=== PATIENT | male | born 1985 | race Caucasian/White ===

== ENCOUNTER 2018-11-28 09:18 | Inpatient (IN) | payer BC, SELFPAY ==
--- NOTE | 2018-11-28 09:55 | RAD ---
XR Chest Pa Lat STANDARD HISTORY: Chest pain COMPARISON: None. FINDINGS: Heart size and mediastinum are within normal limits. The lungs are clear of infiltrates. No significant bony findings. IMPRESSION: No active intrathoracic disease.
[2018-11-28 10:05] LABS: #Basophils 0.2 thou/uL (0.0-0.2); #Eosinphils 0.3 thou/uL (0.0-0.7); #Lymphocytes 2.9 thou/uL (1.20-3.40); #Monocytes 0.6 thou/uL (0.11-0.59); #Neutrophils 5.6 thou/uL (1.40-6.50); %Basophils 1.6 % (0.0-1.0); %Eosinophils 3.5 % (0.0-10.0); %Lymphocytes 30.1 % (21.0-51.0); %Monocytes 6.6 % (0.0-10.0); %Neutrophils 58.1 % (42.0-75.0); Hemoglobin 15.2 g/dL (14.0-18.0); Mean Corpuscular HGB CONC 35.8 g/dL (32.0-36.0); Mean Corpuscular Hemoglobin 31.6 pg (27.0-31.0); Mean Corpuscular Volume 88.3 fL (78.0-98.0); Mean Platelet Volume 7.5 fL (7.4-10.4); Platelet Count 238 thou/uL (130-400); RBC Distribution Width 10.7 % (11.5-14.5); White Blood Cell (WBC) Count 9.6 thou/uL (4.8-10.8)
[2018-11-28] MEDS ORDERED: Lidocaine Viscous Sol 2% 15 ml UD Cup ONE (10:15)
[2018-11-28] MEDS ORDERED: Mag-Al Plus 1200 MG/1200 MG/120 MG/30 ML UDCUP ONE (10:15)
[2018-11-28 10:18] LABS: ALT (SGPT) 33 U/L (8-55); AST (SGOT) 24 U/L (5-34); Albumin 4.4 g/dL (3.5-5.0); Alkaline Phosphatase 85 U/L (40-150); Anion Gap 14 mmol/L (10-20); BUN (Urea Nitrogen) 11 mg/dL (8.9-20.6); Bilirubin, Total 0.4 mg/dL (0.2-1.2); Calc. Creatinine Clearance 0 mL/min (70-130); Calcium 9.5 mg/dL (7.8-10.44); Carbon Dioxide 24 mmol/L (22-29); Chloride 107 mmol/L (98-107); Estimated GFR-MDRD 86; Globulin 2.8 g/dL (2.4-3.5); Glucose 95 mg/dL (70-105); Lipase 286 U/L (8-78); Potassium 3.9 mmol/L (3.5-5.1); Protein, Total 7.2 g/dL (6.0-8.3); Sodium 141 mmol/L (136-145)
[2018-11-28] MEDS ORDERED: Pantoprazole 40 MG VIAL ONE (10:28)
[2018-11-28 10:53] LABS: Bilirubin Negative (Negative); Blood, Urine Negative (Negative); Clarity Clear (Clear); Glucose, Urine (Dipstick) Negative (Negative); Leukocyte Negative (Negative); Nitrite Negative (Negative); Protein, Urine (Dipstick) Negative (Neg-Trace); Urobilinogen 0.2 mg/dL (Less than 2)
[2018-11-28] MEDS ORDERED: Lorazepam 2 MG/ML VIAL ONE (11:03)
[2018-11-28] MEDS ORDERED: Morphine 4 MG/ML VIAL ONE (11:04)
[2018-11-28] MEDS ORDERED: Thiamine HCl 200 MG/2 ML VIAL ONE (11:04)
[2018-11-28] MEDS ORDERED: Dextrose 5 %-0.45 % NaCl 1,000 ML ONE (11:04)
[2018-11-28] MEDS ORDERED: Multivit, Adult Inj 10 ML VIAL ONE (11:04)
[2018-11-28] MEDS ORDERED: diphenhydrAMINE 50 MG/ML VIAL ONE (11:04)
[2018-11-28] MEDS ORDERED: Morphine 2 MG/ML SYRINGE SLOW IVP PRN ×2 (12:59→18:41)
[2018-11-28] MEDS: Ondansetron PF 4 MG/2 ML Vial SLOW IVP PRN (14:52)
[2018-11-28] MEDS ORDERED: HYDROcodone/Acetaminophen 5/325 mg Tablet PO PRN ×3 (15:05→18:49)
[2018-11-28 18:32] VITALS: BMI 24.1
[2018-11-28] MEDS ORDERED: Dextrose 50% Abboject 50 ML SYRINGE SLOW IVP PRN (18:34)
[2018-11-28] MEDS ORDERED: Dextrose 5% in Water 1,000 ML IV PRN (18:34)
[2018-11-28] MEDS ORDERED: Diazepam 5 MG TAB PO PRN (18:38)
[2018-11-28] MEDS ORDERED: Thiamine HCl 200 MG/2 ML VIAL IM SCH (18:45)
[2018-11-28] MEDS: Morphine 2 MG/ML SYRINGE SLOW IVP PRN ×2 (19:28→22:02)
[2018-11-28] MEDS ORDERED: Sodium Chloride 0.9% 100 ML ONE (19:54)
[2018-11-28] MEDS ORDERED: Lactated Ringer's 1,000 ML IV SCH (20:00)
[2018-11-28] MEDS ORDERED: Lorazepam 2 MG/ML VIAL SLOW IVP SCH (20:00)
[2018-11-28] MEDS: Sodium Chloride 0.9% 1,000 ML IV SCH (20:12)
[2018-11-28] MEDS: Pantoprazole 40 MG VIAL IVP SCH (22:48)
[2018-11-28] MEDS: HYDROcodone/Acetaminophen 5/325 mg Tablet PO PRN (22:55)
--- NOTE | 2018-11-29 02:25 | HP ---
PRIMARY CARE PHYSICIAN: None. REASON FOR ADMISSION: Abdominal pain/acute pancreatitis. HISTORY OF PRESENT ILLNESS AND HOSPITAL COURSE: Mr. Kothari is a 33-year-old male with reported history of alcohol use over the past 20 years. He presented to the ER today for evaluation of abdominal pain. The patient reports that he has been having abdominal pain that comes intermittently over the past week. The patient admits that he has been drinking at least 6 to 12 packs a day of beers for the last 20 years. Since November 20 celebration, a week ago, he has been drinking more. States he consumed almost double of what he used to drink. He has been having intermittent epigastric pain and left upper quadrant pain over the past week. The pain radiates to the back on the left side. Pain comes and goes away with unknown triggers. Nothing helps the pain. Food sometimes makes it worse than helps. States that he has not had been eating much for the last few days. Symptoms have been gradual on onset, but progressively worsened over the past few days, so the patient went to the ER at this time with current severity of pain rated as 8/10 upon presentation. The patient reports some nausea but otherwise he denies fever, nausea, diarrhea, rectal bleeding. He has been voiding freely and stooling fine with soft stools. Last BM was noted yesterday. Denies associated trauma. No associated recent travel. No associated urinary tract infection signs or symptoms. On further examination at the ER, his initial vital signs were reported with a BP of 150/91, pulse 98, respirations 20, temperature 97, and O2 sats 95% room air. Initial labs revealed lipase of 286. Troponin less than 0.010. The other liver function tests within normal limits. Calcium 9.5, BUN 11, creatinine 1. Hemoglobin 15.2, hematocrit 42.4, WBC 9.6, platelets 238. Urine is negative. After receiving medications from the ER that includes Ativan intravenous, morphine intravenous 3 mg, Benadryl 12.5 mg, Protonix IV 40 mg, banana bag 1L IV fluid infusion, and GI cocktail 40 mL oral, patient's pain has improved.The ER physician is supposed to send patient home, however The patient admits history of "shaking" every time he stops drinking at home. Given the possibility of alcohol withdrawal, the patient was admitted to [facility] for further monitoring and observation. On the floor, staff reports that the patient started complaining of severe pain , not responding to morphine IV, thus he was also started on [place] p.o. When patient was evaluated , the patient reports that he got some relief after receiving the [place]. However, pain is now starting again, asking for medication. PAST MEDICAL HISTORY: Unremarkable. PAST SURGERY HISTORY: None. MEDICATIONS: None. ALLERGIES: NKDA. SOCIAL HISTORY: The patient smokes a pack a day since 15 years of age. He drinks 6 to 12 packs of beers per day over the last 20 years. 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 The patient had been free of illicit drug use for the last 3 years. The patient is with 2 kids. He works in the [employer] field. FAMILY HISTORY: Father at 54 years of age secondary to lung cancer, unspecified. Mother is alive at 53 years of age, has a history of meth abuse. Two half brothers, that the patient grew up with, was reported to have issues with meth abuse and killed themselves. REVIEW OF SYSTEMS: GENERAL: The patient denies fever or chills. Reports fatigue, general weakness, loss of appetite with weight loss of approximately 4 weeks over the last month. HEENT: No acute visual changes, hearing changes, cold symptoms, but swallowing issues. CARDIO: Denies chest pain, dyspnea on exertion, cyanosis, leg swelling. RESPIRATORY: No shortness of breath, cough, sputum production, pain with breathing, wheezing. History of asthma. GI: Reports some nausea without vomiting since he got admitted. No diarrhea. No constipation. No rectal bleeding. No hematemesis. No acute bowel habit changes. MUSCULOSKELETAL: Reports occasional joint pains. Otherwise, denies joint swelling/effusion, stiffness, or myalgias. NEURO: Denies seizure activities or tics, headaches, loss of consciousness. No motor or sensory losses or loss of coordination. PSYCH: Denies depressive symptoms, anxiety, insomnia, suicidal thoughts, ideations, or plans. PHYSICAL EXAMINATION: VITAL SIGNS: Blood pressure 135/85, temperature 98.2, pulse 71, respiration 18 , O2 saturation 99% room air, weight 145 pounds. GENERAL: The patient is awake, alert, in mild discomfort secondary to reported pain, not in acute distress. HEENT: Normocephalic, atraumatic. PERRL. Intact EOM. Anicteric sclerae. Oral mucosa is moist. NECK: Supple. No LAD. No JVD. No bruit. CHEST: Normal excursion. Nonlabored breathing. Clear to auscultation bilaterally. No wheezing. No crackles. No rhonchi. No rales. ABDOMEN: Flat and soft. Normoactive bowel sounds in 4 quadrants. No tender percussion. Reports direct tenderness in the epigastrium and upper abdomen, left upper quadrant greater than the right upper quadrant. No rebound. No guarding. No signs of peritonitis. No rigidity. EXTREMITIES: No edema. No cyanosis. No clubbing. NEURO: Alert and oriented x3, nonfocal. DTRs 2+ symmetrically. PSYCH: Appears calm with appropriate demeanor and affect. SKIN: No rashes. No lesions. No jaundice. LABORATORY DATA: Other tests and labs: Chest x-ray, no active intrathoracic disease. EKG done in the ER was interpreted by emergency department physician at the time of study showed normal sinus rhythm with a rate of 78 beats per minute. No ectopics. No previous EKG for comparison. Conduction is normal, ST segments normal, P waves normal, axis normal. Clinical impression, normal EKG. ASSESSMENT: 1. Acute alcoholic pancreatitis, mild, 2. Chronic alcoholism. 3. Tobacco use. 4. History of meth abuse or use. PLAN: 1. Plan would be the patient is admitted to [facility] medical floor for inpatient management for acute pancreatitis, deemed secondary to alcohol. At this time , the patient has no evidence of organ failure. He is hemodynamically stable. Electrolytes within normal limits except for mildly elevated lipase of 286. We will continue supportive medical management. We will keep patient n.p.o. except for medication. Continue intravenous fluids. We will continue pain management with morphine IV and p.r.n. [place] for breakthrough pain. We will do serial lab monitoring. We will include lipids as well as Accu-Chek q.6 hours monitoring for hyperglycemia screening. We will continue fluid hydration with normal saline at this time. Abstinence symptoms evaluation orders were initiated. At this time, the patient scores is 3. No indication for diazepam at this point. We will start thiamine 100 mg IM, then thiamine 100 mg p.o. daily, folate 1 mg p.o. daily, multivitamins 1 mg p.o. daily, and magnesium sulfate 1 g in 100 mL NS IVPB over 2 hours, and magnesium oxide 400 mg p.o. daily. At this point, there is no indication for imaging studies, but we will highly consider CT scan of the abdomen versus ultrasound of the abdomen at any time if deemed clinically indicated. We will continue n.p.o.at least for the next 24 to 48 hours and see if we can advance diet afterwards as tolerated. GI prophylaxis with PPI and DVT prophylaxis with Lovenox. 2. Discussed above diagnosis plan of care with the patient at length during this visit. The patient was encouraged to ask questions. His questions were answered to his satisfaction. Again, the patient is currently hemodynamically stable at this point, but at any time that his pain progressed and become severe or if with any signs of peritonitis or other complications including, but not limited to, organ failures , continuous fluid loss, acute changes in his lab tests, we will highly consider transferring patient to a tertiary hospital for higher level of care. I also discussed with the patient that if he develops signs and symptoms that is indicating ICU management based on the screening criteria for this diagnosis, we will highly consider transferring patient at any time. The patient voices understanding. 3. Further recommendations depending on the hospital course. CODE STATUS: Full code. Job ID: [id number] MTDD
[2018-11-29] MEDS: Sodium Chloride 0.9% 1,000 ML IV SCH ×2 (06:25→18:02)
[2018-11-29 06:28] LABS: Cardiac Risk 4.5 (Less than 4.5)
[2018-11-29 06:30] LABS: ALT (SGPT) 24 U/L (8-55); AST (SGOT) 18 U/L (5-34); Albumin 3.6 g/dL (3.5-5.0); Alkaline Phosphatase 79 U/L (40-150); Anion Gap 12 mmol/L (10-20); BUN (Urea Nitrogen) 7 mg/dL (8.9-20.6); Bilirubin, Total 0.6 mg/dL (0.2-1.2); Calc. Creatinine Clearance 99 mL/min (70-130); Calcium 8.1 mg/dL (7.8-10.44); Carbon Dioxide 23 mmol/L (22-29); Chloride 110 mmol/L (98-107); Estimated GFR-MDRD 87; Globulin 2.3 g/dL (2.4-3.5); Glucose 100 mg/dL (70-105); Potassium 3.8 mmol/L (3.5-5.1); Protein, Total 5.9 g/dL (6.0-8.3); Sodium 141 mmol/L (136-145)
[2018-11-29 06:31] LABS: Magnesium 2.2 mg/dL (1.6-2.6)
[2018-11-29 07:15] LABS: Eosinophils 3 % (0-10); Hemoglobin 14.4 g/dL (14.0-18.0); Lymphocytes 17 % (21-51); MDiff Complete? YES; Mean Corpuscular HGB CONC 35.3 g/dL (32.0-36.0); Mean Corpuscular Hemoglobin 31.3 pg (27.0-31.0); Mean Corpuscular Volume 88.7 fL (78.0-98.0); Mean Platelet Volume 7.5 fL (7.4-10.4); Monocytes 2 % (0-10); Neutrophil 78 % (42-75); Platelet Count 202 thou/uL (130-400); Platelet Morphology Comment Appears Adequate; RBC Distribution Width 10.8 % (11.5-14.5); RBC Morphology Normal; Red Blood Cell (RBC) Count 4.58 mill/uL (4.70-6.10); White Blood Cell (WBC) Count 11.5 thou/uL (4.8-10.8)
[2018-11-29] MEDS: Morphine 2 MG/ML SYRINGE SLOW IVP PRN (07:18)
[2018-11-29] MEDS: Multivitamin W/ Minerals 1 TAB PO SCH (08:30)
[2018-11-29] MEDS: Thiamine 100 MG TAB PO SCH (08:30)
[2018-11-29] MEDS: Folic Acid 1 MG TAB PO SCH (08:30)
[2018-11-29] MEDS: Magnesium Oxide 400 MG TAB PO SCH (08:30)
[2018-11-29] MEDS: Enoxaparin Sodium 40 MG/0.4 ML SYRINGE SC SCH (08:30)
[2018-11-29] MEDS: HYDROcodone/Acetaminophen 5/325 mg Tablet PO PRN ×2 (12:50→19:37)
[2018-11-29] MEDS: Ondansetron PF 4 MG/2 ML Vial SLOW IVP PRN (12:52)
[2018-11-29] MEDS: Sodium Chloride 0.45% 1,000 ML IV SCH (17:41)
[2018-11-29] MEDS ORDERED: Diazepam 5 MG TAB PO PRN (18:39)
[2018-11-29] MEDS: Pantoprazole 40 MG VIAL IVP SCH (21:11)
[2018-11-30] MEDS: Sodium Chloride 0.45% 1,000 ML IV SCH (05:36)
[2018-11-30] MEDS: HYDROcodone/Acetaminophen 5/325 mg Tablet PO PRN (05:38)
[2018-11-30 06:25] LABS: #Basophils 0.1 thou/uL (0.0-0.2); #Eosinphils 0.3 thou/uL (0.0-0.7); #Lymphocytes 1.9 thou/uL (1.20-3.40); #Monocytes 0.7 thou/uL (0.11-0.59); #Neutrophils 7.3 thou/uL (1.40-6.50); %Basophils 0.8 % (0.0-1.0); %Eosinophils 3.1 % (0.0-10.0); %Lymphocytes 18.1 % (21.0-51.0); %Monocytes 6.4 % (0.0-10.0); %Neutrophils 71.5 % (42.0-75.0); Mean Corpuscular HGB CONC 36.1 g/dL (32.0-36.0); Mean Corpuscular Hemoglobin 31.8 pg (27.0-31.0); Mean Corpuscular Volume 88.1 fL (78.0-98.0); Mean Platelet Volume 8.5 fL (7.4-10.4); Platelet Count 200 thou/uL (130-400); RBC Distribution Width 10.5 % (11.5-14.5); Red Blood Cell (RBC) Count 4.41 mill/uL (4.70-6.10); White Blood Cell (WBC) Count 10.3 thou/uL (4.8-10.8)
[2018-11-30 06:31] LABS: ALT (SGPT) 23 U/L (8-55); AST (SGOT) 20 U/L (5-34); Albumin 3.9 g/dL (3.5-5.0); Alkaline Phosphatase 82 U/L (40-150); Anion Gap 13 mmol/L (10-20); BUN (Urea Nitrogen) 6 mg/dL (8.9-20.6); Calc. Creatinine Clearance 94 mL/min (70-130); Calcium 8.5 mg/dL (7.8-10.44); Carbon Dioxide 24 mmol/L (22-29); Chloride 108 mmol/L (98-107); Estimated GFR-MDRD 82; Globulin 2.6 g/dL (2.4-3.5); Glucose 87 mg/dL (70-105); Potassium 4.1 mmol/L (3.5-5.1); Protein, Total 6.5 g/dL (6.0-8.3); Sodium 141 mmol/L (136-145)
[2018-11-30 06:45] LABS: Bilirubin, Total 0.7 mg/dL (0.2-1.2)
[2018-11-30] MEDS: Nicotine 21 MG PATCH TD SCH (09:07)
[2018-11-30] MEDS: Thiamine 100 MG TAB PO SCH (09:07)
[2018-11-30] MEDS: Folic Acid 1 MG TAB PO SCH (09:07)
[2018-11-30] MEDS: Enoxaparin Sodium 40 MG/0.4 ML SYRINGE SC SCH (09:07)
[2018-11-30] MEDS: Multivitamin W/ Minerals 1 TAB PO SCH (09:07)
[2018-11-30] MEDS: Magnesium Oxide 400 MG TAB PO SCH (09:07)
[2018-11-30] MEDS ORDERED: Acetaminophen 325 MG TAB PO PRN (14:18)
[2018-11-30] MEDS ORDERED: Sodium Chloride 0.45% 1,000 ML IV SCH (14:30)
[2018-12-01] MEDS: Thiamine 100 MG TAB PO SCH (08:16)
[2018-12-01] MEDS: Enoxaparin Sodium 40 MG/0.4 ML SYRINGE SC SCH (08:16)
[2018-12-01] MEDS: Multivitamin W/ Minerals 1 TAB PO SCH (08:16)
[2018-12-01] MEDS: Magnesium Oxide 400 MG TAB PO SCH (08:16)
[2018-12-01] MEDS: Folic Acid 1 MG TAB PO SCH (08:16)
[2018-12-01] MEDS: Nicotine 21 MG PATCH TD SCH (08:17)
[2018-12-01 12:17] VITALS: BP 127/78; TEMP 97.4
--- NOTE | 2018-12-02 07:07 | DIS ---
DATE OF ADMISSION: 11/28/2018 DATE OF DISCHARGE: 12/01/2018 PRIMARY CARE PHYSICIAN: REASON FOR ADMISSION: Worsening abdominal pain. FINAL DIAGNOSES: 1. Acute alcoholic pancreatitis. 2. Leukocytosis, resolved. 3. Chronic alcoholism. 4. Tobacco abuse. 5. History of illicit drug use. CONDITION ON DISCHARGE: Stable. DISPOSITION: Home with . DISCHARGE MEDICATIONS: 1. Folic acid 1 mg p.o. daily. 2. Magnesium 400 mg p.o. daily. 3. Theragran M 1 tablet p.o. daily. 4. Nicotine patch 21 mg topical derm daily. 5. Thiamine 100 mg p.o. daily. 6. Acetaminophen 650 mg p.o. q.6 hours p.r.n. DISCHARGE INSTRUCTIONS: 1. Follow up with PCP or with Dr. Lindsay in 1 week. 2. Diet, low-fat, bland diet. 3. Activity, ad osmani. 4. Repeat outpatient labs, lipase level prior to followup visit. 5. Counseled on substance use including tobacco, alcohol, and drugs. HISTORY OF PRESENT ILLNESS AND HOSPITAL COURSE: Mr. Kothari is a very pleasant 33-year-old male with reported history of chronic alcohol use over the past 20 years, presented to the ER on 11/28/2018 secondary to progressively worsening abdominal pain that was triggered after having drinking spree since November 20 celebration up to the present time. His symptoms are associated with nausea without vomiting, loss of appetite and intentional weight loss. On further evaluation at [place] [facility], his lipase was elevated to 286. No significant leukocytosis. Liver function within the limit and renal function within normal limits. The patient admits some shakiness whenever he stops drinking at home. Given his history of chronic alcohol abuse, the patient was deemed appropriate to be treated inpatient at [facility] for further monitoring of DTs. The patient was treated supportively in the floor. IV hydration was initiated. He was kept n.p.o. and pain management was treated with morphine and [place] for breakthrough pain. The patient did well over time. His diet was advanced slowly from clear liquids to regular low-fat bland diet. Overall, abdominal pain significantly improved over the course. He was tolerating current diet prior to discharge without significant reported recurrence of abdominal/epigastric/upper quadrant pains. There was no significant withdrawals reported after abstinence of alcohol over the last 3-day course. His repeat labs showed lipase had trended down. He remains febrile free. There was no significant indications for worsening serial lab works except for mild leukocytosis noted on 2nd day that eventually normalized on the 3rd day. On 12/01/2018, the patient was tolerating current diet, febrile free, ambulating, voiding freely and stooling fine. The patient was comfortable to go back home. Extensive counseling regarding alcohol use, tobacco use was done during this hospitalization. The patient was also referred to AA program in [facility]. VITAL SIGNS PRIOR TO DISCHARGE: Blood pressure 127/78, temperature 97.4, pulse 73, respiration 18, O2 sats 99% on room air. Weight 145 pounds, height 5 feet 5 inches. Job ID: [id number]
== END 2018-12-01 14:20 | disposition home or self-care (01) | DRG 440 ==
LOC: MADERS 09:18 → MADMS 10:56
PROVIDERS: ADMIT Family Medicine; ATTEND Family Medicine
PROC: HZ2ZZZZ Detoxification Services for Substance Abuse Treatment (ICD-10-PCS; principal; 2018-11-28)
DX: K85.20 Alcohol induced acute pancreatitis without necrosis or infection (principal); F10.20 Alcohol dependence, uncomplicated; F17.210 Nicotine dependence, cigarettes, uncomplicated
CPT/HCPCS: 36416; 71046; 80053; 80061; 81003; 83690; 83735; 84484; 85007; 85025; 85027; 93005; 94760; 96374; 96375; C9113; J1200; J1650; J2060; J2270; J2405; J3411; J3475; J3490; J7042